=== PATIENT | female | born 2000 | race Caucasian/White ===

== ENCOUNTER 2021-03-05 13:45 | Emergency (ER) | payer OTHER ==
[2021-03-05 14:48] LABS: RED BLOOD COUNT 5.21 M/UL (4.00-5.10); WHITE BLOOD COUNT 18.1 K/UL (4.5-11.0)
[2021-03-05 15:08] LABS: BUN/CREATININE RATIO 22 (0-10)
[2021-03-05] MEDS ORDERED: ZOFRAN4 MG PO (19:53)
== END 2021-03-05 20:53 | disposition home or self-care (01) ==
LOC: ER1 13:45
PROVIDERS: Physician Assistant
DX: R10.9 Unspecified abdominal pain (principal); R11.2 Nausea with vomiting, unspecified; R19.7 Diarrhea, unspecified; F17.290 Nicotine dependence, other tobacco product, uncomplicated; Z20.822 Contact with and (suspected) exposure to COVID-19
CPT/HCPCS: 80053; 81001; 83690; 84703; 85025; 85652; 99284; J7030; Q9967; U0003